=== PATIENT | female | born 1975 | race Caucasian/White ===

== ENCOUNTER 2020-12-31 17:33 | Emergency (ER) | payer BC ==
[2020-12-31] MEDS ORDERED: diphenhydrAMINE 50 MG Cap PO ONE (17:43)
[2020-12-31] MEDS ORDERED: methylPREDNISolone Sodium Succinate 125 MG/2 ML SDV IM ONE (17:43)
[2020-12-31] MEDS ORDERED: Famotidine 20 MG Tab PO ONE (17:44)
--- NOTE | 2020-12-31 17:49 | EDM.PDOC ---
ED HPI GENERAL MEDICAL PROBLEM - General Chief Complaint: Allergic Reaction Stated Complaint: ALLERGIC REACTION Time Seen by Provider: 12/31/20 17:36 Source of Information: Reports: Patient History Limitations: Reports: No Limitations - History of Present Illness INITIAL COMMENTS - FREE TEXT/NARRATIVE: HISTORY AND PHYSICAL: History of present illness: Patient is a 45 year old female who presents to the ED today with concern of allergic reaction starting 45min prior to arrival to the ED. patient states that she works in [place] began feeling her eyelid swelling and becoming itchy during a meeting of the end of the day. Patient states that she drove back to [place] and looked in the mirror and noticed that her eyelids were more swollen. Patient states they continue to be itchy and swollen and she is starting to feel itchy all over. Patient denies any oropharyngeal edema or difficulties breathing. Patient states that she has had this occur prior but states that it was a milder form. Patient states she has not taken any medication for her symptoms. Patient denies any new exposures that she is aware of or new medications. Patient denies fever, chills, chest pain, shortness of breath, or cough. Denies headache, neck stiff ness, change in vision, syncope, or near syncope. Denies nausea, vomiting, abdominal pain, diarrhea, constipation, or dysuria. Has not noted any blood in urine or stool. Patient has been eating and drinking appropriately. Review of systems: As per history of present illness and below otherwise all systems reviewed and negative. Past medical history: As per history of present illness and as reviewed below otherwise noncontributory. Surgical history: As per history of present illness and as reviewed below otherwise nonco ntributory. Social history: See social history for further information Family history: As per history of present illness and as reviewed below otherwise noncontributory. Physical exam: General: Patient is alert, oriented, and in no acute distress. Patient sitting comfortably on exam table. Vitals stable and reviewed by me. HEENT: No lip edema, tongue edema, or oropharyngeal edema. No stridor. Patient does have bilateral edema of upper eyelids. Otherwise, atraumatic, normocephalic, pupils equal and reactive bilaterally, negative for conjunctival pallor or scleral icterus, mucous membranes moist, TMs normal bilaterally, throat clear, neck supple, nontender, trachea midline. No drooling or trismus noted. No meningeal signs. No hot potato voice noted. Lungs: Clear to auscultation, breath sounds equal bilaterally, chest nontender. Heart: S1S2, regular rate and rhythm without overt murmur Abdomen: Soft, nondistended, nontender. Negative for masses or hepatosplenomegaly. Negative for costovertebral tenderness. Pelvis: Stable nontender. Genitourinary: Deferred. Rectal: Deferred. Skin: Intact, warm, dry. No lesions or rashes noted. Extremities: Atraumatic, negative for cords or calf pain. Neurovascular unremarkable. Neuro: Awake, alert, oriented. Cranial nerves II through XII unremarkable. Cerebellum unremarkable. Motor and sensory unremarkable throughout. Exam nonfocal. Notes: Patient is a 45-year-old female who presents emergency room today with concern of allergic reaction occurring 45 minutes to an hour prior to the emergency room. Upon arrival to the ED, patient is vitally stable and does not have any lip edema, tongue edema, or oropharyngeal edema but is noted to have bilateral upper eyelid edema. Will provide dose Benadryl, solumedrol, famotidine and reassess patient prior improvement of symptoms. Upon reevaluation of patient, she has improvement in symptoms of her eyelid swelling and states that her itching has completely stopped. Strict return precautions thoroughly discussed with patient. Discussed importance for follow- up with a primary care provider and to consider formal allergy testing with her primary care provider. Voices understanding and is agreeable to plan of care. Denies any further questions or concerns at this time. Diagnostics: None Therapeutics: Benadryl, Solu-Medrol, famotidine Prescription: Medrol Dosepak Impression: Allergic reaction Plan: 1. Avoid triggers. Continue to monitor for possible exposures/triggers/foods. 2. While symptomatic continue to routinely take Benadryl 50mg every 4-6 hours and Zantac 150mg twice daily. Take the Medrol dose pack as prescribed. 3. Consider formal allergy testing once you have completed your medications and have improved. 4. Please follow up with your Primary care provider as discussed. Return to the ED as needed and as discussed. Definitive disposition and diagnosis as appropriate pending reevaluation and review of above. - Related Data Allergies Allergy/AdvReac Type Severity Reaction Status Date / Time No Known Allergies Allergy Verified 12/31/20 17:42 Home Meds: Home Meds methylPREDNISolone [Medrol] 4 mg PO ASDIRECTED #1 dosepk 12/31/20 [Rx] ED ROS ALLERGIC REACTION - Review of Systems Review Of Systems: Comprehensive ROS is negative, except as noted in HPI. ED EXAM GENERAL NO PERIP PULSE - Physical Exam Exam: See Below (see dictation) Course - Vital Signs Last Recorded V/S: Last Vital Signs Temp 98.5 F 12/31/20 17:42 Pulse 67 12/31/20 17:52 Resp 18 12/31/20 17:52 BP 129/90 12/31/20 17:52 Pulse Ox 99 12/31/20 17:52 - Orders/Labs/Meds Meds: Medications Discontinued Medications Generic Name Dose Route Start Last Admin Trade Name Freq PRN Reason Stop Dose Admin Diphenhydramine HCl 50 mg 12/31/20 17:43 12/31/20 17:51 Diphenhydramine 50 Mg Cap PO 12/31/20 17:44 50 mg ONETIME ONE Administration Famotidine 40 mg 12/31/20 17:44 12/31/20 17:51 Famotidine 20 Mg Tab PO 12/31/20 17:45 40 mg ONETIME ONE Administration Methylprednisolone Sodium Succinate 125 mg 12/31/20 17:43 12/31/20 17:51 Methylprednisolone Sodium Succinate 125 Mg/2 Ml Sdv IM 12/31/20 17:44 125 mg ONETIME ONE Administration Departure - Departure Time of Disposition: 18:33 Disposition: Home, Self-Care 01 Clinical Impression: Allergic reaction Qualifiers: Encounter type: initial encounter Qualified Code(s): T78.40XA - Allergy, unspecified, initial encounter - Discharge Information Prescriptions: methylPREDNISolone [Medrol] 4 mg PO ASDIRECTED #1 dosepk Referrals: PCP,None [Primary Care Provider] - Forms: ED Department Discharge Additional Instructions: The following information is given to patients seen in the emergency department who are being discharged to home. This information is to outline your options for follow-up care. We provide all patients seen in our emergency department with a follow-up referral. The need for follow-up, as well as the timing and circumstances, are variable depending upon the specifics of your emergency department visit. If you don't have a primary care physician on staff, we will provide you with a referral. We always advise you to contact your personal physician following an emergency department visit to inform them of the circumstance of the visit and for follow-up with them and/or the need for any referrals to a consulting specialist. The emergency department will also refer you to a specialist when appropriate. This referral assures that you have the opportunity for follow-up care with a specialist. All of these measure are taken in an effort to provide you with optimal care, which includes your follow-up. Under all circumstances we always encourage you to contact your private physician who remains a resource for coordinating your care. When calling for follow-up care, please make the office aware that this follow-up is from your recent emergency room visit. If for any reason you are refused follow-up, please contact the [facility] at and asked to speak to the emergency department charge nurse. [facility] [address] [place] [address] [place] [address] 1. Avoid triggers. Continue to monitor for possible exposures/triggers/foods. 2. While symptomatic continue to routinely take Benadryl as directed according to the bottle. Take the Medrol dose pack as prescribed. 3. Consider formal allergy testing once you have completed your medications and have improved. 4. Please follow up with your Primary care provider as discussed. Return to the ED as needed and as discussed. Sepsis Event Note (ED) - Focused Exam Vital Signs: Vital Signs Temp Pulse Resp BP Pulse Ox 12/31/20 17:52 67 18 129/90 99 12/31/20 17:42 98.5 F 66 18 127/77 99
== END 2020-12-31 19:07 | disposition home or self-care (01) ==
LOC: MW.ED 17:33
DX: T78.40XA Allergy, unspecified, initial encounter (principal)
CPT/HCPCS: 96372; 99283; A9270; J2930

== ENCOUNTER 2021-08-16 05:26 | Emergency (ER) | payer BC ==
[2021-08-16] MEDS ORDERED: Ibuprofen 600 MG Tab PO ONE (06:42)
[2021-08-16] MEDS ORDERED: Acetaminophen/oxyCODONE 325-5 MG Tab PO ONE (06:46)
[2021-08-16] MEDS ORDERED: Promethazine 25 MG Tab PO STA (06:46)
== END 2021-08-16 06:55 | disposition home or self-care (01) ==
LOC: MW.ED 05:26
DX: S06.9X1A Unspecified intracranial injury with loss of consciousness of 30 minutes or less, initial encounter (principal); S39.92XA Unspecified injury of lower back, initial encounter; W19.XXXA Unspecified fall, initial encounter
CPT/HCPCS: 70450; 71045; 99284; A9270; 99283

== ENCOUNTER 2024-05-15 18:06 | Emergency (ER) | payer BC ==
[2024-05-15] MEDS: Bacitracin Oint 1 GM U/D Packet TOP ONE (19:25)
[2024-05-15] MEDS: Acetaminophen/HYDROcodone 325-5 MG Tab PO ONE (19:25)
[2024-05-15] MEDS: Ondansetron 4 MG Tab.DIS PO ONE (19:25)
== END 2024-05-15 19:30 | disposition home or self-care (01) ==
LOC: MW.ED 18:06
DX: S00.83XA Contusion of other part of head, initial encounter (principal); Z90.710 Acquired absence of both cervix and uterus; Z79.899 Other long term (current) drug therapy; Z75.8 Other problems related to medical facilities and other health care; W01.198A Fall on same level from slipping, tripping and stumbling with subsequent striking against other object, initial encounter
CPT/HCPCS: 70450; 70486; 99283; A9270